=== PATIENT | male | born 1970 | race Caucasian/White ===

== ENCOUNTER → 2017-12-18 12:00 | Outpatient (CLI) | payer OTHER, SELFPAY ==
[2017-12-18 13:16] LABS: AST(SGOT) 24 U/L (15-37); Alanine Aminotransfer ALT/SGPT 30 U/L (16-61); Albumin, Serum 3.6 g/dL (3.2-5.0); Alkaline Phosphatase 69 U/L (45-117); Bilirubin, Direct 0.18 mg/dL (0.00-0.30); Cholesterol 145 mg/dL (200); Globulin 3.7 g/dL (2.2-4.2); High Density Lipoprotein 37 mg/dL; Protein, Total 7.3 g/dL (6.4-8.2); Triglycerides 100 mg/dL; Very Low Density Lipoprotein 20 mg/dL (5-40)
== END ==
PROVIDERS: Family Provider Internal Medicine; PCP Internal Medicine; Visit Provider Nurse Practitioner Family
DX: I48.0 Paroxysmal atrial fibrillation (principal); E78.5 Hyperlipidemia, unspecified; Z79.899 Other long term (current) drug therapy
CPT/HCPCS: 36415; 80061; 80076

== ENCOUNTER 2018-12-06 06:52 | Emergency (ER) | payer OTHER, SELFPAY ==
[2018-12-06 06:53] VITALS: BP 193/103; PULSE 90; RESP 16; TEMP 37.2; O2SAT 95; BMI 39.3
--- NOTE | 2018-12-06 07:01 | EKG12_ITS ---
Test Reason : IRREGULAR HR Blood Pressure : / mmHG Vent. Rate : 085 BPM Atrial Rate : 085 BPM P-R Int : 146 ms QRS Dur : 092 ms QT Int : 352 ms P-R-T Axes : 032 049 038 degrees QTc Int : 418 ms Normal sinus rhythm Normal ECG Confirmed by DEEJAY MYERS MD ([id number]), editor magazine MAT SHAFER ([id number]) on 12/10/2018 2:00:49 PM Referred By: FARIDA Confirmed By:DEEJAY MYERS MD
--- NOTE | 2018-12-06 07:01 | RAD_ITS ---
STUDY: X-RAY CHEST REASON FOR EXAM: Male, 48 years old. Chest pain. TECHNIQUE: AP portable chest. COMPARISON: None. FINDINGS: The lungs are clear and expanded. There is no demonstrated pleural abnormality. Normal size heart. Normal mediastinum and lazarus. Normal visualized pulmonary arteries. Normal visualized aortic arch and descending thoracic aorta. Normal visualized thoracic spine. Normal visualized ribs, clavicles, and shoulders. There is no demonstrated abnormality of the visualized soft tissue structures of the upper abdomen. RAD/Chest 1 View (Portable) IMPRESSION: Normal x-ray examination of the chest. Electronically Signed: Rob Velazquez MD at 7:39 EST , Service support ,
[2018-12-06 07:03] VITALS: O2SAT 94
[2018-12-06 07:12] LABS: Absolute Lymphocyte Count 1.75 X10^3/ul (0.83-4.51); Absolute Neutrophil Count 3.3 X10^3/uL (2.0-7.7); Basophil# 0.02 X10^3/uL; Basophil% 0.3 % (0-1); Eosinophil# 0.19 X10^3/uL; Eosinophils% 3.3 % (0-5); Hematocrit 47.1 % (40-54); Hemoglobin 15.1 g/dl (13.0-16.5); Lymphocyte # 1.75 X10^3/ul (4.0); Lymphocyte % 30.1 % (19-41); Mean Corp Hgb Conc 32.1 g/gl (32-36); Mean Corpuscular Volume 84.3 fL (80-94); Mean Platelet Vol. 10.6 fl (6.2-12.0); Monocyte# 0.54 X10^3/uL; Monocyte% 9.3 % (0-10); Neutrophil % 56.8 % (47-70); Platelet Count 171 K/mm3 (150-450); RBC Distribution Width CV 14.1 % (11.6-14.6); RBC Distribution Width SD 43.7 fl (35.1-43.9); Red Blood Count 5.59 M/mm3 (4.6-6.2); White Blood Count 5.8 K/mm3 (4.4-11.0)
[2018-12-06 07:15] LABS: POSITIVE COUNT NO; POSITIVE DIFFERENTIAL NO; POSITIVE MORPHOLOGY NO
[2018-12-06 07:32] LABS: Anion Gap 9 (5-15); BUN 17 mg/dL (7-18); BUN/Creat Ratio 20.2 RATIO (10-20); Calcium,Total 8.9 mg/dL (8.5-10.1); Chloride 108 mmol/L (98-107); Creatinine, Serum 0.84 mg/dL (0.70-1.30); EST Glomerular Filtration Rate 103 mL/min (>60); Est Glom Filt Rate - Afr Amer 124 mL/min (>60); Estimated Creatinine Clearance 122.32 ml/min; Glucose 121 mg/dL (74-106); Magnesium 2.1 mg/dL (1.6-2.6); Potassium 3.8 mmol/L (3.5-5.1); Sodium Level 144 mmol/L (136-145)
--- NOTE | 2018-12-06 07:50 | ED.DCSUM_ITS ---
- ER Visit Summary Date of Service: 12/06/18 Chief Complaint: Palpitations History of Present Illness: The patient is a 48 M with palpitations that started when he woke up this morning. He feels like his heart is flip flopping. He has not had any palpitations for the last 10 years. At that time he was diagnosed with atrial fibrillation due to an underlying abnormal conduction pathway. He underwent an ablation and has been doing well since. He denies any history of coronary artery disease or any other heart disease. He does have a history of high cholesterol and takes medication for that. He is a non-smoker. Denies any history of lung disease or thyroid disease. He has been well recently. Physical Examination: Afebrile and vital signs unremarkable except for a blood pressure of 193/103. He is alert and oriented and his skin appears normal without diaphoresis or pallor. Heart is regular rate and rhythm. Lungs clear. Good pulses. Test Results: EKG showed sinus rhythm, normal rate. No sign of ischemia or infarction. Blood work including CBC, BMP, troponin, magnesium, and TSH were unremarkable. His chest x-ray was normal. Emergency Department Course and Treatment: Patient was placed on a monitor. He remained in sinus rhythm during his stay. I reviewed his telemetry. His blood pressure improved to 148/90. His workup was unremarkable and he was asymptomatic. I spoke with Dr. Byrne who was on-call for his learning operations specialist, Dr. Jeffrey. He advised starting the patient on Coreg, 3.125 mg twice daily. He also advised starting the patient on a 30-day event monitor. This was ordered and staff from cardiovascular came to the ED to apply the monitor. He was advised to follow-up with his learning operations specialist in about 2 weeks. Return sooner for any new or worsening issues. Treatment Plan: As above Disposition: Discharge Impression: 1. Palpitations This note was generated with appweevr dictation software. It may contain incorrect words, spelling, and punctuation that were not noted in review of the chart prior to signing ED Disposition - Plan for ED Patient: Instructions: ED Palpitations Prescriptions: Carvedilol [Coreg] 3.125 mg PO BID #60 tab Referrals: Roman Jeffrey MD [STAFF PHYSICIAN] - (about 2 weeks)
[2018-12-06 08:12] VITALS: BP 148/90; PULSE 74; RESP 15; O2SAT 95
== END 2018-12-06 08:55 | disposition home or self-care (01) ==
LOC: ED 07:17
PROVIDERS: Emergency Provider Emergency Medicine; Family Provider Internal Medicine; PCP Internal Medicine
DX: R00.2 Palpitations (principal); I48.91 Unspecified atrial fibrillation; I49.3 Ventricular premature depolarization; E78.00 Pure hypercholesterolemia, unspecified; Z79.899 Other long term (current) drug therapy
CPT/HCPCS: 71045; 80048; 83735; 84443; 84484; 85025; 93005; 99284; A4216

== ENCOUNTER → 2018-12-06 08:03 | Outpatient (CLI) | payer OTHER, SELFPAY ==
[2018-12-06 06:53] VITALS: BMI 39.3
== END ==
PROVIDERS: Family Provider Internal Medicine; PCP Internal Medicine; Visit Provider Emergency Medicine
DX: Z00.00 Encounter for general adult medical examination without abnormal findings (principal)

== ENCOUNTER → 2018-12-29 11:23 | Outpatient (CLI) | payer OTHER, SELFPAY ==
[2018-12-12 16:13] VITALS: BMI 39.3
[2018-12-29 12:58] LABS: AST(SGOT) 23 U/L (15-37); Alanine Aminotransfer ALT/SGPT 35 U/L (16-61); Albumin, Serum 4.1 g/dL (3.2-5.0); Alkaline Phosphatase 65 U/L (45-117); Bilirubin, Direct 0.17 mg/dL (0.00-0.30); Cholesterol 195 mg/dL (200); Globulin 3.6 g/dL (2.2-4.2); High Density Lipoprotein 41 mg/dL; Protein, Total 7.7 g/dL (6.4-8.2); Triglycerides 120 mg/dL; Very Low Density Lipoprotein 24 mg/dL (5-40)
== END ==
PROVIDERS: Family Provider Internal Medicine; PCP Internal Medicine; Referring Provider Internal Medicine Cardiovascular Disease; Visit Provider Internal Medicine Cardiovascular Disease
DX: E78.5 Hyperlipidemia, unspecified (principal)
CPT/HCPCS: 36415; 80061; 80076

== ENCOUNTER 2020-03-02 22:04 | Emergency (ER) | payer OTHER, SELFPAY ==
[2020-01-13 08:31] VITALS: BMI 39.0
[2020-03-02 22:05] VITALS: BP 172/99; PULSE 89; RESP 15; TEMP 37; O2SAT 96; BMI 39.5
--- NOTE | 2020-03-02 22:13 | EKG12_ITS ---
Test Reason : DYSRHYTHMIA Blood Pressure : / mmHG Vent. Rate : 086 BPM Atrial Rate : 086 BPM P-R Int : 120 ms QRS Dur : 092 ms QT Int : 354 ms P-R-T Axes : 039 062 038 degrees QTc Int : 423 ms Normal sinus rhythm Normal ECG Confirmed by JEANINE SUE, CORONA ([id number]), editorial cartoonist MAT SHAFER ([id number]) on 03/05/2020 2:38:11 PM Referred By: TL Confirmed By:CORONA SOLORZANO MD
[2020-03-02 22:26] VITALS: BP 162/93; PULSE 80; RESP 16; O2SAT 94
--- NOTE | 2020-03-02 23:28 | ED.DCSUM_ITS ---
History of Present Illness Chief Complaint: Palpitations Informant: Patient Onset: Today - Several hours ago Context: Gradual Onset Timing: Intermittent - X1, Lasts - About 15 minutes Quality: Irregular heartbeat Location: Chest Current Severity: - - Gone Maximum Severity: Moderate Worsened by: Nothing in particular Relieved by: Nothing in particular Associated Symptoms: See below. Asymptomatic now. Narrative: Patient states he was out working in the yard, and very high ambient temperatures today. He was doing landscaping, etc. He was trying to drink some water, but thinks he may not have drank enough. He went to get shower, when cruz d started cramping up and then the other hand, then his thighs. He suspected he was dehydrated. He was a little shaky. He drank 3 bottles of Gatorade quickly, in addition to taking a couple of Tums for the calcium, some magnesium pills, and extra doses of multivitamin that he had taken earlier in the day. It was not until he sat down after feeling a little better and taking noticed that he thought he felt an irregular heartbeat. He used his apple watch to try to record an EKG, it said undetermined rhythm. On the way here, he did it again and it said normal sinus rhythm, which her EKG verifies as well. He was concerned because he had a history of A. fib/a flutter for which he had a cardiac ablation wanted to make sure he was not going back into it. - Past Medical History (1) History of atrial flutter Status: Chronic (2) History of cardiac radiofrequency ablation Status: Chronic Comment: Atrial flutter ablation post RUBEN per Dr. Dhaval Ortiz, [facility] (3) Mixed hyperlipidemia Status: Chronic (4) Obesity Status: Chronic (5) PFO (patent foramen ovale) Status: Chronic (6) Paroxysmal atrial fibrillation Status: Chronic Comment: S/P cardioversion in December 2008; RFA December 2008 at [facility] with Dr. Devine; (7) Premature ventricular contraction Status: Chronic Past Medical History - Allergies and Home Meds Allergies/Adverse Reactions: Allergies Penicillins Allergy (Verified 03/02/20 22:11) Hives celecoxib [From Celebrex] Adverse Reaction (Severe, Verified 03/02/20 22:11) sleep issues, diaphoresis After rotator cuff surgery Primary Care Physician: Aylin Patton DO [Primary Care Provider] - Surgical History: - - Cardiac ablation Lives: Spouse/ Significant Other Smoking Status: Never smoker Review of Systems General: Reports: Malaise - Better now. Denies: Chills, Fever, Sweats Eyes: Denies: Visual changes - bilaterally, Diplopia ENT: Denies: Rhinorrhea, Sore throat Cardiovascular: Denies: Chest pain, Palpitations Respiratory: Denies: Dyspnea, Cough, Dyspnea on exertion Gastrointestinal: Denies: Abdominal pain, Nausea, Vomiting, Diarrhea, Melena, Hematochezia Genitourinary: Denies: Dysuria, Hematuria, Frequency Musculoskeletal: Reports: Extremity Pain - See HPI. Denies: Back pain Skin: Denies: Rash, Wounds Neurological: Denies: Headache, Weakness, Numbness Physical Exam Vital Signs/Narrative: Vital Signs Temp Pulse Resp BP Pulse Ox 03/02/20 22:26 80 16 162/93 H 94 03/02/20 22:05 98.6 F 89 15 172/99 H 96 Inital Vital Signs reviewed: Yes General: Well nourished, Well developed, No Acute Distress - Well-appearing, conversive in full sentences Head: Normocephalic, Atraumatic Eyes: Perrl, EOMI ENT: Moist mucous membranes, No rhinorrhea Neck: Supple, Nontender Cardiovascular: Regular rate, Regular rhythm, No murmurs. Negative for: Tachycardia Respiratory: No distress, CTA bilaterally, Chest nontender Abdomen: Soft, Nontender, Nondistended, Normal bowel sounds Back: Nontender, Normal Inspection Extremities: Nontender, No edema Skin: Normal color, No rash, No Trauma Neurological: Alert, Oriented x3, Cranial nerves II-XII grossly intact, Normal Strength, Normal Sensation Psychological: Normal affect, Normal Mood Diagnostic/Tx/Re-eval Laboratory Tests 03/02/20 03/02/20 03/02/20 Range/Units 22:10 22:10 22:10 WBC 9.6 (4.4-11.0) K/mm3 RBC 5.35 (4.6-6.2) M/mm3 Hgb 14.4 (13.0-16.5) g/dL Hct 44.0 (40-54) % MCV 82.2 (80-94) fL MCH 26.9 L (27.0-32.0) pg MCHC 32.7 (32-36) g/dL RDW Std Deviation 45.4 H (35.1-43.9) fl RDW Coeff of Mabel 15.7 H (11.6-14.6) % Plt Count 219 (150-450) K/mm3 MPV 11.0 (6.2-12.0) fl Immature Gran % (Auto) 0.700 (0.0-0.9) % Neut % (Auto) 71.9 H (47-70) % Lymph % (Auto) 15.5 L (19-41) % [place] % (Auto) 10.2 H (0-10) % Eos % (Auto) 1.4 (0-5) % Baso % (Auto) 0.3 (0-1) % Absolute Neuts (auto) 6.9 (2.0-7.7) X10^3/uL Absolute Lymphs (auto) 1.48 (0.83-4.51) X10^3/uL Nucleated RBC % 0 (0-5) % Sodium 141 (136-145) mmol/L Potassium 3.9 (3.5-5.1) mmol/L Chloride 106 (98-107) mmol/L Carbon Dioxide 29.0 (21.0-32.0) mmol/L Anion Gap 6 (5-15) BUN 18 (7-18) mg/dL Creatinine 1.13 (0.70-1.30) mg/dL Estim Creat Clear Calc 89.92 ml/min Est GFR (MDRD) Af Amer 88 (>60) mL/min Est GFR (MDRD) Non-Af 73 (>60) mL/min BUN/Creatinine Ratio 15.9 (10-20) RATIO Glucose 109 H (74-106) mg/dL Calcium 9.7 (8.5-10.1) mg/dL Urine Color Straw (Yellow) Urine Clarity Clear (Clear) Urine pH 7.0 (5.0 - 8.0) Ur Specific [place] 1.010 (1.002-1.030) Urine Protein Negative (Negative) mg/dl Urine Glucose (UA) Normal (Normal) mg/dl Urine Ketones Negative (Negative) mg/dl Urine Occult Blood Negative (Negative) /ul Urine Nitrite Negative (Negative) Urine Bilirubin Negative (Negative) mg/dL Urine Urobilinogen Normal (Normal) mg/dl Ur Leukocyte Esterase Negative (Negative) /ul Urine RBC 0 SEEN (0-5) /hpf Urine WBC 0 SEEN (0-5) /hpf Ur Squamous Epith Cells 0 SEEN (0-5) /hpf Urine Bacteria 0 SEEN (None Seen) /hpf Urine Mucus 0 SEEN (<or=2+) /hpf - Rhythm Strip Rhythm Strip: Sinus Rhythm Rate: 86 Ectopy: None - EKG Initial EKG Interpretation: Sinus Rhythm, No Acute Injury Pattern - Normal EKG - Medical Decision Making Is reassured, his monitor shows sinus rhythm and his EKG is normal. Electrolytes were checked. I reviewed the rhythm strip that are recorded on his [employer] EKG at. I agree it is difficult to determine. There is artifact present, and it is difficult to tell how much of the rhythm is artifact versus sinus versus A. fib. The QRS complexes appear to be the same as his normal rhythm strip, narrow, and they appear to be fairly regular. He was monitored and had no recurrences of symptoms or ectopy/dysrhythmia. ED Disposition - Plan for ED Patient: Disposition: Home or Assisted Living Diagnosis: Mild dehydration, Palpitations Instructions: ED Palpitations Referrals: Aylin Patton DO [Primary Care Provider] - As Needed
[2020-03-02 23:39] LABS: Absolute Lymphocyte Count 1.48 X10^3/uL (0.83-4.51); Absolute Neutrophil Count 6.9 X10^3/uL (2.0-7.7); Anion Gap 6 (5-15); BUN 18 mg/dL (7-18); BUN/Creat Ratio 15.9 RATIO (10-20); Basophil# 0.03 X10^3/uL; Basophil% 0.3 % (0-1); Calcium,Total 9.7 mg/dL (8.5-10.1); Chloride 106 mmol/L (98-107); Creatinine, Serum 1.13 mg/dL (0.70-1.30); EST Glomerular Filtration Rate 73 mL/min (>60); Eosinophil# 0.13 X10^3/uL; Eosinophils% 1.4 % (0-5); Est Glom Filt Rate - Afr Amer 88 mL/min (>60); Estimated Creatinine Clearance 89.92 ml/min; Glucose 109 mg/dL (74-106); Hemoglobin 14.4 g/dL (13.0-16.5); Lymphocyte # 1.48 X10^3/ul (4.0); Lymphocyte % 15.5 % (19-41); Mean Corp Hgb Conc 32.7 g/dL (32-36); Mean Corpuscular Hgb 26.9 pg (27.0-32.0); Mean Corpuscular Volume 82.2 fL (80-94); Monocyte# 0.98 X10^3/uL; Monocyte% 10.2 % (0-10); NRBC Flagged by Analyzer 0 % (0-5); Neutrophil # 6.88 X10^3/uL (2.7-7.7); Neutrophil % 71.9 % (47-70); Platelet Count 219 K/mm3 (150-450); Potassium 3.9 mmol/L (3.5-5.1); RBC Distribution Width CV 15.7 % (11.6-14.6); RBC Distribution Width SD 45.4 fl (35.1-43.9); Red Blood Count 5.35 M/mm3 (4.6-6.2); Sodium Level 141 mmol/L (136-145); White Blood Count 9.6 K/mm3 (4.4-11.0)
[2020-03-02 23:44] LABS: Bacteria 0 SEEN /hpf (None Seen); Mucous, Urine 0 SEEN /hpf (<or=2+); Red Blood Cells-Urine 0 SEEN /hpf (0-5); Squamous Epithelial Cells - UA 0 SEEN /hpf (0-5); White Blood Cells 0 SEEN /hpf (0-5)
[2020-03-02 23:45] LABS: Color, Urine Straw (Yellow); Glucose, Dipstick Normal (Normal); Ketone-Dipstick Negative (Negative); Leukocyte Esterase-Dipstick Negative /ul (Negative); Nitrite-Dipstick Negative (Negative); Occult Blood-Urine Negative /ul (Negative); Protein-Dipstick Negative (Negative); Urine Bilirubin Dipstick Negative (Negative); Urine Clarity Clear (Clear); Urine Urobilinogen Normal (Normal)
[2020-03-03 00:13] VITALS: BP 143/77; PULSE 69; RESP 17; O2SAT 95
[2020-03-03 01:04] VITALS: BP 132/72; PULSE 71; RESP 14; O2SAT 98
== END 2020-03-03 01:06 | disposition home or self-care (01) ==
PROVIDERS: Emergency Provider Emergency Medicine; PCP Internal Medicine
DX: R00.2 Palpitations (principal); E86.0 Dehydration; E66.9 Obesity, unspecified; I48.92 Unspecified atrial flutter; E78.2 Mixed hyperlipidemia; I48.0 Paroxysmal atrial fibrillation; Q21.1 Atrial septal defect; Z79.899 Other long term (current) drug therapy
CPT/HCPCS: 80048; 81001; 85025; 93005; 99283; A4216

== ENCOUNTER → 2020-04-21 07:45 | Outpatient (CLI) | payer OTHER, SELFPAY ==
[2020-04-21 10:11] LABS: AST(SGOT) 31 U/L (15-37); Alanine Aminotransfer ALT/SGPT 46 U/L (16-61); Albumin, Serum 3.8 g/dL (3.2-5.0); Alkaline Phosphatase 68 U/L (45-117); Cholesterol 181 mg/dL (200); Globulin 3.8 g/dL (2.2-4.2); High Density Lipoprotein 45 mg/dL; Protein, Total 7.6 g/dL (6.4-8.2); Triglycerides 112 mg/dL; Very Low Density Lipoprotein 22 mg/dL (5-40)
== END ==
PROVIDERS: PCP Internal Medicine; Referring Provider Nurse Practitioner Family; Visit Provider Nurse Practitioner Family
DX: E78.2 Mixed hyperlipidemia (principal)
CPT/HCPCS: 36415; 80061; 80076

== ENCOUNTER → 2020-07-10 15:11 | Outpatient (CLI) | payer OTHER, SELFPAY ==
[2020-07-10 17:52] LABS: CRP < 2.90 mg/L (0.0-3.0)
[2020-07-13 20:07] LABS: Endomysial Antibody IgA Negative (Negative)
[2020-07-13 21:13] LABS: Immunoglobulin A 101 mg/dL (90-386); t-Transglutaminase IgA <2 U/mL (0-3)
== END ==
PROVIDERS: PCP Internal Medicine; Referring Provider Internal Medicine Gastroenterology; Visit Provider Internal Medicine Gastroenterology
DX: R19.7 Diarrhea, unspecified (principal)
CPT/HCPCS: 36415; 82784; 83516; 86140; 86255

== ENCOUNTER → 2020-07-31 10:20 | Outpatient (CLI) | payer OTHER, SELFPAY ==
[2020-07-16 15:56] VITALS: BMI 40.1
[2020-07-31 12:15] LABS: Absolute Lymphocyte Count 2.03 X10^3/uL (0.83-4.51); Absolute Neutrophil Count 4.4 X10^3/uL (2.0-7.7); Basophil# 0.03 X10^3/uL; Basophil% 0.4 % (0-1); Eosinophil# 0.12 X10^3/uL; Eosinophils% 1.6 % (0-5); Hematocrit 44.6 % (40-54); Hemoglobin 14.1 g/dL (13.0-16.5); Lymphocyte # 2.03 X10^3/ul (4.0); Lymphocyte % 27.6 % (19-41); Mean Corp Hgb Conc 31.6 g/dL (32-36); Mean Corpuscular Hgb 26.4 pg (27.0-32.0); Mean Corpuscular Volume 83.5 fL (80-94); Mean Platelet Vol. 10.9 fl (6.2-12.0); Monocyte# 0.71 X10^3/uL; Monocyte% 9.7 % (0-10); NRBC Flagged by Analyzer 0 % (0-5); Neutrophil # 4.44 X10^3/uL (2.7-7.7); Neutrophil % 60.4 % (47-70); Platelet Count 228 K/mm3 (150-450); RBC Distribution Width CV 14.6 % (11.6-14.6); Red Blood Count 5.34 M/mm3 (4.6-6.2); White Blood Count 7.4 K/mm3 (4.4-11.0)
[2020-07-31 12:28] LABS: AST(SGOT) 17 U/L (15-37); Alanine Aminotransfer ALT/SGPT 33 U/L (16-61); Albumin, Serum 3.8 g/dL (3.2-5.0); Alkaline Phosphatase 65 U/L (45-117); Anion Gap 6 (5-15); BUN 15 mg/dL (7-18); BUN/Creat Ratio 18.9 RATIO (10-20); Chloride 106 mmol/L (98-107); EST Glomerular Filtration Rate 109 mL/min (>60); Est Glom Filt Rate - Afr Amer 131 mL/min (>60); Glucose 97 mg/dL (74-106); Potassium 3.8 mmol/L (3.5-5.1); Protein, Total 7.8 g/dL (6.4-8.2); Sodium Level 139 mmol/L (136-145)
== END ==
PROVIDERS: PCP Internal Medicine; Referring Provider Internal Medicine; Visit Provider Internal Medicine
DX: R03.0 Elevated blood-pressure reading, without diagnosis of hypertension (principal)
CPT/HCPCS: 36415; 80053; 85025